=== PATIENT | female | born 1960 | race Asian ===

== ENCOUNTER 2020-02-15 16:04 | Emergency (ER) | payer OTHER ==
[~2020-02-15] VITALS: Ht 162.6 cm; Wt 56.7 kg
[2020-02-15 16:12] VITALS: Ht 162.6 cm; Wt 56.7 kg
[2020-02-15 17:55] VITALS: BP 124/75
== END 2020-02-15 17:55 | disposition home or self-care (01) ==
LOC: ED 16:04
DX: S80.02XA Contusion of left knee, initial encounter (principal); S80.01XA Contusion of right knee, initial encounter; V49.9XXA Car occupant (driver) (passenger) injured in unspecified traffic accident, initial encounter; Y93.89 Activity, other specified; Y92.89 Other specified places as the place of occurrence of the external cause; Y99.8 Other external cause status
CPT/HCPCS: Q0092